=== PATIENT | female | born 1990 | race Hispanic/Latino ===

== ENCOUNTER 2017-11-19 11:39 | Emergency (ER) | payer SELFPAY ==
[2017-11-19 12:12] LABS: Absolute Lymphocytes (CBC) 1.1 K/uL (0.7-4.9); Absolute Monocytes 0.4 K/uL (0.1-1.3); Basophils % 0.2 % (0-1.3); Eosinophils % 0.1 % (0-4.4); Hematocrit 37.8 % (36.0-45.0); Lymphocytes % 9.4 % (15.3-44.8); MCH 30.3 pg (27.0-35.0); MCV 89.6 fL (80-100); MPV 8.1 fL (7.6-11.3); Monocytes % 3.9 % (3.3-12.3); RBC Red Blood Cell Count 4.22 M/uL (3.86-4.86)
[2017-11-19] MEDS ORDERED: ONDANSETRON 4 MG/2 ML VIAL ONE (12:12)
[2017-11-19] MEDS ORDERED: NA CHLORIDE 0.9% 1,000 ML ONE (12:12)
[2017-11-19 12:26] LABS: Urine Blood TRACE (NEG); Urine Glucose NEGATIVE (NEG); Urine Protein TRACE (NEG); Urine Specific Gravity >1.030 (1.005-1.030)
[2017-11-19 12:29] LABS: Urine Bacteria >50 /HPF (<20); Urine Culture Reflex Order REFLEXED; Urine RBC <5 /HPF (NONE SEEN)
[2017-11-19 12:32] LABS: ALT/SGPT 20 U/L (12-78); AST/SGOT 14 U/L (15-37); Albumin 2.9 g/dL (3.4-5.0); Alkaline Phosphatase 91 U/L (45-117); Amylase Level 131 U/L (25-115); BUN Blood Urea Nitrogen 6 mg/dL (7-18); Bicarbonate 23 mmol/L (21-32); Bilirubin Direct 0.1 mg/dL (0-0.2); Bilirubin Total 0.4 mg/dL (0.2-1.0); Glucose Level 129 mg/dL (74-106); Lipase 123 U/L (73-393); Potassium 3.7 mmol/L (3.5-5.1); Protein, Total 7.7 g/dL (6.4-8.2); Sodium Level 138 mmol/L (136-145)
--- NOTE | 2017-11-19 13:08 | RAD REPORT ---
EXAM DESCRIPTION: US - OB Limited - 11/19/2017 12:39 pm CLINICAL HISTORY: with abdominal and pelvic pain COMPARISON: None FINDINGS: Limited sonogram evaluation was performed to assess cervix, placenta, heart rate and amnio tic fluid Single live into is in breech presentation. The placenta is posterior. A subchorionic/retroplacental bleed is not seen. The placenta is not low l deena The cervix measures 4.5 centimeters. Cardiac activity 149 beats per minute. IMPRESSION: Limited OB ultrasound is unremarkable.
--- NOTE | 2017-11-19 13:08 | RAD REPORT ---
EXAM DESCRIPTION: US - Abdomen Exam Limited - 11/19/2017 12:40 pm CLINICAL HISTORY: Abdominal pain. COMPARISON: None. FINDINGS: Multiple gallstones are present. The gallbladder wall is not thickened. The biliary tree is normal caliber. IMPRESSION: Cholelithiasis without evidence of cholecystitis
--- NOTE | 2017-11-19 13:39 | EDPHYS ---
Physician Documentation [facility] Name: Paty Bautista Age: 26 yrs Sex: Female : 1990 Arrival Date: 11/19/2017 Time: 11:40 Bed 5 Private MD: None, None ED Physician Kit Thomas HPI: 11/19 13:00 This 26 yrs old Female presents to ER via Ambulatory with complaints of tw4 Abdominal Pain. 13:00 The patient presents with abdominal pain in the upper abdomen, in the right upper tw4 quadrant. Onset: The symptoms/episode began/occurred 5 day(s) ago. The symptoms do not radiate. Associated signs and symptoms: none. The symptoms are described as dull. Modifying factors: The symptoms are alleviated by nothing, the symptoms are aggravated by alcohol. Severity of pain: At its worst the pain was moderate in the emergency department the pain is unchanged. The patient has not experienced similar symptoms in the past. The patient has not recently seen a physician. 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 - Social history:: Smoking status: Patient/guardian denies using tobacco. - Ebola Screening: : Patient denies travel to an Ebola-affected area in the 21 days before illness onset. ROS: 13:00 Constitutional: Negative for fever, chills, and weight loss, Cardiovascular: Negative tw4 for chest pain, palpitations, and edema, Respiratory: Negative for shortness of breath, cough, wheezing, and pleuritic chest pain. 13:00 MS/Extremity: Negative for injury and deformity, Skin: Negative for injury, rash, and discoloration, Neuro: Negative for headache, weakness, numbness, tingling, and seizure. 13:00 Abdomen/GI: Positive for abdominal pain, nausea and vomiting, nausea, vomiting, and diarrhea, nausea, vomiting, Negative for diarrhea, constipation, abdominal cramps, abdominal distension, anorexia. 13:00 : Positive for missed period, Negative for injury or acute deformity, urinary symptoms, urinary frequency, small amounts, hematuria, pelvic pain, flank pain, burning with urination, difficulty urinating, bladder incontinence, foul smelling urine, vaginal bleeding, vaginal discharge, vaginal itching, menstrual abnormality. Exam: 13:00 Constitutional: This is a well developed, well nourished patient who is awake, alert, tw4 and in no acute distress. Head/Face: Normocephalic, atraumatic. Chest/axilla: Normal chest wall appearance and motion. Nontender with no deformity. No lesions are appreciated. Cardiovascular: Regular rate and rhythm with a normal S1 and S2. No gallops, murmurs, or rubs. Normal PMI, no JVD. No pulse deficits. Respiratory: Lungs have equal breath sounds bilaterally, clear to auscultation and percussion. No rales, rhonchi or wheezes noted. No increased work of breathing, no retractions or nasal flaring. 13:00 Skin: Warm, dry with normal turgor. Normal color with no rashes, no lesions, and no evidence of cellulitis. MS/ Extremity: Pulses equal, no cyanosis. Neurovascular intact. Full, normal range of motion. Neuro: Awake and alert, GCS 15, oriented to person, place, time, and situation. Cranial nerves II-XII grossly intact. Motor strength 5/5 in all extremities. Sensory grossly intact. Cerebellar exam normal. Normal gait. 13:00 Abdomen/GI: Inspection: abdomen appears normal, Bowel sounds: normal, Palpation: moderate abdominal tenderness, in the right upper quadrant. Vital Signs: 11:54 BP 127 / 81; Pulse 81; Resp 18; Temp 97.4(TE); Pulse Ox 99% on R/A; aj1 MDM: 11:53 Patient medically screened. tw4 13:34 Differential diagnosis: cholecystitis, Cholelithiasis. Data reviewed: vital signs, tw4 nurses notes. Data interpreted: Pulse oximetry: Interpretation: normal. Counseling: I had a detailed discussion with the patient and/or guardian regarding: the historical points, exam findings, and any diagnostic results supporting the discharge/admit diagnosis, lab results, radiology results. Medication response: Zofran relieved the patient's nausea. Special discussion: Based on the patient's Hx, exam, and Dx evaluation, there is no indication for emergent surgery or inpatient Tx. It is understood by the patient/guardian that if the Sx's persist or worsen they need to return immediately for re-evaluation. I discussed with the patient/guardian in detail that at this point there is no indication for admission to the hospital. It is understood, however, that if the symptoms persist or worsen the patient needs to return immediately for re-evaluation. 11/19 11:55 Order name: Amylase, Serum; Complete Time: 13:18 [facility] 11/19 13:18 Interpretation: Normal except: CHAO 131. 11/19 11:55 Order name: Basic Metabolic Panel; Complete Time: 13:18 [facility] 11/19 13:19 Interpretation: Normal except: GLUC 129; BUN 6; CRE 0.50. 11/19 11:55 Order name: CBC with Diff; Complete Time: 13:18 [facility] 11/19 13:19 Interpretation: Normal except: WBC 11.6; ADIA% 86.4; LYM% 9.4; NEUT A 10.0. 11/19 11:55 Order name: Creatinine for Radiology; Complete Time: 13:18 [facility] 11/19 13:19 Interpretation: Normal except: CRE 0.50. 11/19 11:55 Order name: Hepatic Function; Complete Time: 13:18 [facility] 11/19 13:19 Interpretation: Normal except: AST 14; ALB 2.9; GLOB 4.8; A/G 0.6. 11/19 11:55 Order name: Lipase; Complete Time: 13:18 [facility] 11/19 11:55 Order name: Urine Microscopic Only; Complete Time: 13:18 [facility] 11/19 13:19 Interpretation: Normal except: SQEPI 20-50; UBACT >50; UWBC 5-10. 11/19 11:55 Order name: US OB Limited; Complete Time: 13:18 [facility] 11/19 12:21 Order name: Urine Dipstick--Ancillary (enter results); Complete Time: 13:18 bd 11/19 12:21 Order name: Urine --Ancillary (enter results); Complete Time: 13:18 11/19 13:19 Interpretation: Normal except: URINE PREG POS; USPGR >1.030. 11/19 12:31 Order name: Urine Culture EDPR 11/19 12:39 Order name: Abdomen Exam Limited; Complete Time: 13:18 EDPR 11/19 11:55 Order name: Urine Test (obtain specimen); Complete Time: 12:06 tw4 11/19 11:55 Order name: IV Saline Lock; Complete Time: 12:06 4 11/19 11:55 Order name: Labs collected and sent; Complete Time: 12:06 4 11/19 11:55 Order name: Urine Dipstick-Ancillary (obtain specimen); Complete Time: 12:05 tw4 Administered Medications: 12:13 Drug: Zofran 4 mg Route: IVP; Site: right antecubital; ss 13:44 Follow up: Response: No adverse reaction 12:14 Drug: NS 0.9% 1000 ml Route: IV; Rate: 1 bolus; Site: right antecubital; ss 13:44 Follow up: IV Status: Completed infusion ss Disposition: 11/19/17 13:38 Discharged to Home. Impression: Cholelithiasis, biliary colic. - Condition is Stable. - Discharge Instructions: Abdominal Pain During , Cholelithiasis. - Prescriptions for Zofran 4 mg Oral Tablet - take 1 tablet by ORAL route every 12 hours As needed; 6 tablet. - Medication Reconciliation Form, Thank You Letter, Antibiotic Education, Prescription Opioid Use form. - Follow up: Private Physician; When: As needed; Reason: Further diagnostic work-up, Recheck today's complaints, Re-evaluation by your physician. Follow up: Afsaneh Whyte MD; When: As needed; Reason: Recheck today's complaints, Re-evaluation by your physician. Follow up: Richard Davidson MD; When: As needed; Reason: Recheck today's complaints, Re-evaluation by your physician. - Problem is new. - Symptoms have improved. Signatures: Dispatcher [employer] [facility] Franca Bain RN RN aj1 Asha Cruz RN RN ss Kit Thomas MD MD tw4 Corrections: (The following items were deleted from the chart) 12:39 11:55 Abdomen Complete+US.RAD.BRZ ordered. [facility] 13:45 13:38 11/19/2017 13:38 Discharged to Home. Impression: Cholelithiasis; biliary colic. ss Condition is Stable. Forms are Medication Reconciliation Form, Thank You Letter, Antibiotic Education, Prescription Opioid Use. Follow up: Private Physician; When: As needed; Reason: Further diagnostic work-up, Recheck today's complaints, Re-evaluation by your physician. Follow up: Afsaneh Whyte; When: As needed; Reason: Recheck today's complaints, Re-evaluation by your physician. Follow up: Richard Davidson; When: As needed; Reason: Recheck today's complaints, Re-evaluation by your physician. Problem is new. Symptoms have improved. tw4
--- NOTE | 2017-11-19 13:39 | ER ---
Nurse's Notes [facility] Name: Paty Bautista Age: 26 yrs Sex: Female : 1990 Arrival Date: 11/19/2017 Time: 11:40 Bed 5 Private MD: None, None Diagnosis: Cholelithiasis;biliary colic Presentation: 11/19 11:43 Presenting complaint:. aj1 11:52 Presenting complaint: Patient states: RUQ abdominal pain that radiates to the back aj1 since . States the has been intermittent, but got severe this morning. Reports N/V. Denies diarrhea. States she is 24 weeks . Denies lower abdominal pain or vaginal bleeding. Transition of care: patient was not received from another setting of care. Onset of symptoms was November 14, 2017. Risk Assessment: Do you want to hurt yourself or someone else? Patient reports no desire to harm self or others. Initial Sepsis Screen: Does the patient meet any 2 criteria? No. Patient's initial sepsis screen is negative. Does the patient have a suspected source of infection? Yes: Acute abdominal pain. Care prior to arrival: None. 11:52 Method Of Arrival: Ambulatory aj1 11:52 Acuity: DIANDRA 3 aj1 Triage Assessment: 11:54 General: Appears in no apparent distress. uncomfortable, Behavior is calm, cooperative, aj1 appropriate for age. Pain: Complains of pain in right upper quadrant Pain radiates to back Is intermittent. Neuro: Level of Consciousness is awake, alert, obeys commands. Cardiovascular: Patient's skin is warm and dry. Respiratory: Airway is patent Respiratory effort is even, unlabored, Respiratory pattern is regular, symmetrical. GI: Reports upper abdominal pain, nausea, vomiting. 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 - Social history:: Smoking status: Patient/guardian denies using tobacco. - Ebola Screening: : Patient denies travel to an Ebola-affected area in the 21 days before illness onset. Screenin:04 Abuse screen: Denies threats or abuse. Denies injuries from another. Nutritional ss screening: No deficits noted. Tuberculosis screening: Never had TB. Fall Risk None identified. Assessment: 12:00 General: Appears uncomfortable, Behavior is calm, cooperative, Denies fever, feeling ss ill, fatigue, chills. Pain: Complains of pain in right upper quadrant Pain currently is 8 out of 10 on a pain scale. Quality of pain is described as tender, Pain began 5 days ago Is continuous, Aggravated by increased activity. Pain: Pain radiates to right mid back. Neuro: Level of Consciousness is awake, alert, obeys commands, Oriented to person, place, time, situation. Cardiovascular: Capillary refill < 3 seconds is brisk in bilateral fingers. Respiratory: Airway is patent Trachea midline Respiratory effort is even, unlabored, Respiratory pattern is regular, symmetrical, Breath sounds are clear bilaterally. Denies cough, pain with respiration, pain with cough, pain with movement. GI: Bowel sounds present X 4 quads. Abd is soft X 4 quads. : Denies burning with urination, cramping discharge, urinary frequency, urgency, vaginal bleeding. EENT: Nares are clear Oral mucosa is moist. Derm: Skin is intact, is healthy with good turgor, Skin is dry, Skin is pink, warm \T\ dry. normal. Musculoskeletal: Circulation, motion, and sensation intact. Range of motion: intact in all extremities, Swelling absent. 12:30 Reassessment: Pt to Ultrasound now VIA wheelchair. ss 13:44 Reassessment: Patient appears in no apparent distress at this time. Patient and/or ss family updated on plan of care and expected duration. Pain level reassessed. Patient is alert, oriented x 3, equal unlabored respirations, skin warm/dry/pink. Patient states feeling better. Patient states symptoms have improved. Vital Signs: 11:54 BP 127 / 81; Pulse 81; Resp 18; Temp 97.4(TE); Pulse Ox 99% on R/A; aj1 ED Course: 11:40 Patient arrived in ED. mr 11:41 None, None is Private Physician. mr 11:41 Deedee Mosquera FNP-C is [facility]. kb 11:42 Elian Swenson MD is Attending Physician. kb 11:53 Kit Thomas MD is Attending Physician. tw4 11:54 Triage completed. aj1 11:54 Arm band placed on Patient placed in an exam room. aj1 12:04 Asha Cruz, RN is Primary Nurse. ss 12:04 Patient has correct armband on for positive identification. Bed in low position. Call ss light in reach. Side rails up X 1. Adult w/ patient. 12:04 Inserted saline lock: 20 gauge in right antecubital area, using aseptic technique. ss Blood collected. 12:40 US OB Limited In Process Unspecified. EDMS 12:40 Abdomen Exam Limited In Process Unspecified. EDMS 13:37 Afsaneh Whyte MD is Referral Physician. tw4 13:37 Richard Davidson MD is Referral Physician. tw4 13:44 No provider procedures requiring assistance completed. IV discontinued, intact, ss bleeding controlled, No redness/swelling at site. Pressure dressing applied. Administered Medications: 12:13 Drug: Zofran 4 mg Route: IVP; Site: right antecubital; ss 13:44 Follow up: Response: No adverse reaction ss 12:14 Drug: NS 0.9% 1000 ml Route: IV; Rate: 1 bolus; Site: right antecubital; ss 13:44 Follow up: IV Status: Completed infusion ss Outcome: 13:38 Discharge ordered by . tw4 13:44 Discharged to home ambulatory, with family. ss 13:44 Condition: good 13:44 Discharge instructions given to patient, Instructed on discharge instructions, follow up and referral plans. medication usage, Demonstrated understanding of instructions, follow-up care, medications, Prescriptions given X 1. 13:45 Patient left the ED. Signatures: Dispatcher [employer] EDAZ Deedee Mosquera, VACUUM CLOSING MACHINE OPERATOR-C VACUUM CLOSING MACHINE OPERATOR-Ckb Franca Bain RN RN aj1 Sobia Mak mr Asha Cruz, RN RN Kit Da Silva MD MD tw4 Corrections: (The following items were deleted from the chart) 13:14 13:09 General: Appears uncomfortable, Behavior is calm, cooperative, Denies fever, ss feeling ill, fatigue, chills, ss 13:14 13:09 Pain: Complains of pain in right upper quadrant Pain currently is 8 out of 10 on a pain scale. Quality of pain is described as tender, Pain began 5 days ago Is continuous, Aggravated by increased activity, ss 13:14 13:09 Neuro: Level of Consciousness is awake, alert, obeys commands, Oriented to person, place, time, situation, : 13: Pain: Pain radiates to right mid back ss : Derm: Skin is intact, is healthy with good turgor, Skin is dry, Skin is pink, ss warm \T\ dry. normal, :: Respiratory: Airway is patent Trachea midline Respiratory effort is even, ss unlabored, Respiratory pattern is regular, symmetrical, Breath sounds are clear bilaterally. Denies cough, pain with respiration, pain with cough, pain with movement, : Cardiovascular: Capillary refill < 3 seconds is brisk in bilateral fingers [facility] : EENT: Nares are clear Oral mucosa is moist. ss : GI: Bowel sounds present X 4 quads. Abd is soft X 4 quads [facility] : : Denies burning with urination, cramping discharge, urinary frequency, ss urgency, vaginal bleeding, : Musculoskeletal: Circulation, motion, and sensation intact. Range of motion: ss intact in all extremities, Swelling absent ss
== END 2017-11-19 13:45 | disposition home or self-care (01) ==
LOC: EDBD → ER 11:39
DX: K80.20 Calculus of gallbladder without cholecystitis without obstruction (principal); K80.50 Calculus of bile duct without cholangitis or cholecystitis without obstruction; E11.9 Type 2 diabetes mellitus without complications
CPT/HCPCS: 36415; 76705; 76815; 80048; 80076; 81003; 81015; 81025; 82150; 83690; 85025; 87086; 87088; 96361; 96374; 99284; J2405; J7030

== ENCOUNTER 2017-11-25 04:45 | Emergency (ER) | payer SELFPAY ==
[2017-11-25] MEDS ORDERED: NA CHLORIDE 0.9% 1,000 ML ONE (06:35)
[2017-11-25] MEDS ORDERED: PROMETHAZINE 25 MG/ML VIAL ONE (06:35)
[2017-11-25] MEDS ORDERED: ONDANSETRON 4 MG/2 ML VIAL ONE (06:35)
[2017-11-25] MEDS ORDERED: DICYCLOMINE HCL 10 MG CAP ONE (06:35)
[2017-11-25 06:53] LABS: Urine Blood TRACE (NEG); Urine Glucose NEGATIVE (NEG); Urine Protein NEGATIVE (NEG); Urine Specific Gravity >1.030 (1.005-1.030); Urine pH 5.5 (5.0-7.0)
[2017-11-25 06:57] LABS: Urine Bacteria 20-50 /HPF (<20); Urine Culture Reflex Order REFLEXED; Urine RBC <5 /HPF (NONE SEEN)
[2017-11-25 07:01] LABS: Absolute Lymphocytes (CBC) 2.3 K/uL (0.7-4.9); Absolute Monocytes 0.5 K/uL (0.1-1.3); Absolute Neutrophil 10.9 K/uL (1.8-8.0); Basophils % 0.3 % (0-1.3); Eosinophils % 0.2 % (0-4.4); Hematocrit 35.7 % (36.0-45.0); Lymphocytes % 16.6 % (15.3-44.8); MCH 30.6 pg (27.0-35.0); MCV 89.2 fL (80-100); MPV 8.5 fL (7.6-11.3); Monocytes % 3.6 % (3.3-12.3)
[2017-11-25 07:08] LABS: ALT/SGPT 20 U/L (12-78); AST/SGOT 14 U/L (15-37); Albumin 2.7 g/dL (3.4-5.0); Alkaline Phosphatase 86 U/L (45-117); Amylase Level 73 U/L (25-115); BUN Blood Urea Nitrogen 6 mg/dL (7-18); Bicarbonate 24 mmol/L (21-32); Bilirubin Direct 0.1 mg/dL (0-0.2); Bilirubin Total 0.3 mg/dL (0.2-1.0); Glucose Level 122 mg/dL (74-106); Lipase 135 U/L (73-393); Potassium 3.5 mmol/L (3.5-5.1); Protein, Total 7.2 g/dL (6.4-8.2); Sodium Level 138 mmol/L (136-145)
--- NOTE | 2017-11-25 08:40 | EDPHYS ---
Physician Documentation [facility] Name: Paty Bautista Age: 26 yrs Sex: Female : 1990 Arrival Date: 11/25/2017 Time: 04:45 Bed 18 Private MD: ED Physician Terrence Hawkins HPI: 11/25 06:29 This 26 yrs old Female presents to ER via Ambulatory with complaints of R side cp Pain. 06:29 The patient presents with abdominal pain in the right upper quadrant. Onset: The cp symptoms/episode began/occurred this morning. Associated signs and symptoms: Pertinent positives: vomiting, nausea, Pertinent negatives: chest pain, fever, diarrhea. 06:29 The symptoms radiate to right back. cp 06:29 The patient has been recently seen at the [facility] Emergency cp Department, last week, for similar complaints labs were performed, an ultrasound was performed. 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 - Social history:: Smoking status: Patient/guardian denies using tobacco. - Ebola Screening: : No symptoms or risks identified at this time. ROS: 06:30 Eyes: Negative for injury, pain, redness, and discharge. cp 06:30 Constitutional: Negative for body aches, chills, fever, poor PO intake. 06:30 ENT: Negative for drainage from ear(s), ear pain, sore throat, difficulty swallowing, difficulty handling secretions. 06:30 Cardiovascular: Negative for chest pain, edema, palpitations. 06:30 Respiratory: Negative for cough, shortness of breath, wheezing. 06:30 Abdomen/GI: Positive for abdominal pain, nausea, vomiting, Negative for diarrhea, constipation, anorexia, black/tarry stool, rectal bleeding. 06:30 : Negative for urinary symptoms, pelvic pain, vaginal bleeding, vaginal discharge. 06:30 Skin: Negative for cellulitis, rash. 06:30 Back: Positive for radiated pain. cp 06:30 All other systems are negative. cp Exam: 06:31 Head/Face: Normocephalic, atraumatic. cp 06:31 Constitutional: The patient appears in no acute distress, alert, awake, non-diaphoretic, non-toxic, well developed, well nourished, uncomfortable. 06:31 Eyes: Periorbital structures: appear normal, Conjunctiva: normal, no exudate, no injection, Sclera: no appreciated abnormality, Lids and lashes: appear normal, bilaterally. 06:31 ENT: External ear(s): are unremarkable, Nose: is normal, Mouth: Lips: moist, Oral mucosa: pink and intact, moist, Posterior pharynx: is normal, airway is patent, no erythema, no exudate. 06:31 Chest/axilla: Inspection: normal, Palpation: is normal, no crepitus, no tenderness. 06:31 Cardiovascular: Rate: normal, Rhythm: regular. 06:31 Respiratory: the patient does not display signs of respiratory distress, Respirations: normal, no use of accessory muscles, no retractions, no splinting, no tachypnea, labored breathing, is not present, Breath sounds: are clear throughout, no decreased breath sounds, no stridor, no wheezing. 06:31 Abdomen/GI: Inspection: gravid appearance, is noted, Bowel sounds: active, all quadrants, Palpation: soft, in all quadrants, moderate abdominal tenderness, in the right upper quadrant, voluntary guarding, is elicited in the right upper quadrant. 06:31 Skin: cellulitis, is not appreciated, no rash present. Vital Signs: 06:15 BP 123 / 94; Pulse 76; Resp 18; Temp 97.6; Pulse Ox 100% ; Weight 80 kg; Height 5 ft. ea (152.40 cm); Pain 7/10; 08:40 BP 122 / 86; Pulse 72; Resp 17 S; Pulse Ox 100% on R/A; sg 06:15 Body Mass Index 34.44 (80.00 kg, 152.40 cm) ea MDM: 06:09 Patient medically screened. cp 06:33 Differential diagnosis: cholecystitis, Cholelithiasis, gastritis, pancreatitis, Peptic cp Ulcer Disease, Perf. Duodenal Ulcer, Perf. Gastric Ulcer, Ureterolithiasis, urinary tract infection. 08:04 Data reviewed: vital signs, nurses notes, lab test result(s), radiologic studies, cp ultrasound. 11/25 06:16 Order name: Amylase, Serum; Complete Time: 07:16 cp 11/25 07:16 Interpretation: CHAO 73; Reviewed. 11/25 06:16 Order name: Basic Metabolic Panel; Complete Time: 07:16 cp 11/25 07:17 Interpretation: Normal except: GLUC 122; BUN 6; CRE 0.50. 11/25 06:16 Order name: CBC with Diff; Complete Time: 07:16 cp 11/25 07:17 Interpretation: Normal except: WBC 13.8; HCT 35.7; ADIA% 79.3; NEUT A 10.9. 11/25 06:16 Order name: Creatinine for Radiology; Complete Time: 07:16 cp 11/25 07:18 Interpretation: Reviewed. 11/25 06:16 Order name: Hepatic Function; Complete Time: 07:16 cp 11/25 07:17 Interpretation: Normal except: AST 14; ALB 2.7; GLOB 4.5; A/G 0.6. 11/25 06:16 Order name: Lipase; Complete Time: 07:16 11/25 07:18 Interpretation: Within normal limits: LIP 135; Reviewed. 11/25 06:16 Order name: Urine Microscopic Only; Complete Time: 07:16 cp 11/25 07:18 Interpretation: Normal except: UBACT 20-50. 11/25 06:16 Order name: US Abdomen Limited 11/25 06:34 Order name: Urine Dipstick--Ancillary (enter results); Complete Time: 07:16 rg2 11/25 07:18 Interpretation: Normal except: USPGR >1.030; UKET 1+; UBLD TRACE. 11/25 06:58 Order name: Urine Culture EDMS 11/25 06:16 Order name: IV Saline Lock; Complete Time: 06:28 cp 11/25 06:16 Order name: Labs collected and sent; Complete Time: 06:28 cp 11/25 06:16 Order name: Urine Dipstick-Ancillary (obtain specimen); Complete Time: 06:33 cp 11/25 06:16 Order name: FHT's; Complete Time: 07:15 cp 11/25 06:16 Order name: NPO; Complete Time: 06:33 cp 11/25 08:21 Order name: PO challenge; Complete Time: 08:22 cp Administered Medications: 06:42 Drug: Zofran 4 mg Route: IVP; Site: right antecubital; ea 06:42 Drug: Phenergan 12.5 mg Route: IVP; Site: right antecubital; ea 06:42 Drug: NS 0.9% 1000 ml Route: IV; Rate: 1 bolus; Site: right antecubital; ea 06:42 Drug: Bentyl 20 mg Route: PO; ea Disposition: 10:32 Co-signature as Attending Physician, Terrence Hawkins MD I agree with the assessment and kdr plan of care. Disposition: 11/25/17 08:40 Discharged to Home. Impression: Cholelithiasis, Biliary Colic. - Condition is Stable. - Discharge Instructions: Biliary Colic, Adult, Cholelithiasis. - Prescriptions for Bentyl 20 mg Oral Tablet - take 2 tablet by ORAL route every 6 hours As needed; 40 tablet. Macrobid 100 mg Oral Capsule - take 1 capsule by ORAL route every 12 hours for 7 days; 14 capsule. promethazine 25 mg Oral Tablet - take 1 tablet by ORAL route every 6 hours As needed; 20 tablet. Phenergan 25 mg Rectal Suppository - insert 1 suppository by RECTAL route every 6 hours As needed; 12 suppository. - Work release form, Medication Reconciliation Form, Thank You Letter, Antibiotic Education, Prescription Opioid Use form. - Follow up: Afsaneh Whyte MD; When: 1 - 2 days; Reason: Recheck today's complaints. - Problem is an ongoing problem. - Symptoms have improved. Signatures: Dispatcher [employer] EDMS Kayley Oviedo Kevin, MD MD [facility] Elian Messina PA PA cp Antunez, Elena, RN RN ea Corrections: (The following items were deleted from the chart) 07:38 06:30 Back: Negative for pain at rest, pain with movement, radiated pain, cp cp 07:38 06:30 All other systems are negative, cp cp 08:41 08:40 11/25/2017 08:40 Discharged to Home. Impression: Cholelithiasis. Condition is cp Stable. Forms are Medication Reconciliation Form, Thank You Letter, Antibiotic Education, Prescription Opioid Use. Follow up: Afsaneh Whyte; When: 1 - 2 days; Reason: Recheck today's complaints. Problem is an ongoing problem. Symptoms have improved. cp 08:49 08:41 11/25/2017 08:40 Discharged to Home. Impression: Cholelithiasis; Biliary Colic. bd Condition is Stable. Forms are Medication Reconciliation Form, Thank You Letter, Antibiotic Education, Prescription Opioid Use. Follow up: Mini Rekhi; When: 1 - 2 days; Reason: Recheck today's complaints. Problem is an ongoing problem. Symptoms have improved. cp
--- NOTE | 2017-11-25 08:40 | ER ---
Nurse's Notes [facility] Name: Paty Bautista Age: 26 yrs Sex: Female : 1990 Arrival Date: 11/25/2017 Time: 04:45 Bed 18 Private MD: Diagnosis: Cholelithiasis;Biliary Colic Presentation: 11/25 04:59 Note Pt states she is 24 weeks and is having abd pain. Per MD orders pt sent aa1 to L\T\D for evaluation. 06:21 Presenting complaint: Patient states: Patient complaining of RUQ pain that radiates to ea back, pt states it started at 1 am states it is constant. Reports he vomited one time before coming. Transition of care: patient was not received from another setting of care. Onset of symptoms was November 25, 2017. Risk Assessment: Do you want to hurt yourself or someone else? Patient reports no desire to harm self or others. Initial Sepsis Screen: Does the patient meet any 2 criteria? No. Patient's initial sepsis screen is negative. Does the patient have a suspected source of infection? No. Patient's initial sepsis screen is negative. Care prior to arrival: None. 06:21 Method Of Arrival: Ambulatory ea 06:21 Acuity: DIANDRA 3 ea Triage Assessment: 06:17 General: Appears uncomfortable, Behavior is calm, cooperative, appropriate for age. ea Pain: Complains of pain in posterior aspect of right lateral abdomen, anterior aspect of right lateral abdomen and right upper quadrant Quality of pain is described as aching, Pain began at 1 am Is continuous, Noted to be guarding. Neuro: Level of Consciousness is awake, alert, obeys commands, Oriented to person, place, time, situation. Cardiovascular: Heart tones S1 S2 present Patient's skin is warm and dry. Respiratory: Airway is patent Respiratory effort is even, unlabored, Respiratory pattern is regular, symmetrical, Breath sounds are clear bilaterally. GI: Abdomen is non-distended, Bowel sounds present X 4 quads. Reports upper abdominal pain. : No signs and/or symptoms were reported regarding the genitourinary system. Derm: Skin is pink, warm \T\ dry. 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 - Social history:: Smoking status: Patient/guardian denies using tobacco. - Ebola Screening: : No symptoms or risks identified at this time. Screenin:20 Abuse screen: Denies threats or abuse. Nutritional screening: No deficits noted. ea Tuberculosis screening: No symptoms or risk factors identified. Fall Risk None identified. 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 ea Vital Signs: 06:15 BP 123 / 94; Pulse 76; Resp 18; Temp 97.6; Pulse Ox 100% ; Weight 80 kg; Height 5 ft. ea (152.40 cm); Pain 7/10; 08:40 BP 122 / 86; Pulse 72; Resp 17 S; Pulse Ox 100% on R/A; sg 06:15 Body Mass Index 34.44 (80.00 kg, 152.40 cm) ea Vitals: 07:15 Heart Tones 136 . hb ED Course: 04:45 Patient arrived in ED. ds1 06:08 Elian Messina PA is PHCP. cp 06:08 Wilner Fonseca MD is Attending Physician. cp 06:14 Gabriela Sosa, PAVAN is Primary Nurse. ea 06:20 Arm band placed on right wrist. Patient placed in an exam room, on a stretcher, on ea pulse oximetry. 06:26 Triage completed. ea 06:26 Patient has correct armband on for positive identification. Bed in low position. Call ea light in reach. Side rails up X2. 06:32 Initial lab(s) drawn, by me, sent to lab. Inserted saline lock: 20 gauge in right cc antecubital area, using aseptic technique. Blood collected. 06:56 US Abdomen Limited In Process Unspecified. EDMS 06:56 Ultrasound completed. Patient tolerated well. aa4 07:06 Primary Nurse role handed off by Gabriela Sosa, RN sg 07:06 Sandro Adan, RN is Primary Nurse. sg 08:04 Terrence Hawkins MD is Attending Physician. cp 08:26 Diet: Patient given water. Tolerated well. sg 08:39 Afsaneh Whyte MD is Referral Physician. cp 09:40 No provider procedures requiring assistance completed. Patient did not have IV access sg during this emergency room visit. Administered Medications: 06:42 Drug: Zofran 4 mg Route: IVP; Site: right antecubital; ea 06:42 Drug: Phenergan 12.5 mg Route: IVP; Site: right antecubital; ea 06:42 Drug: NS 0.9% 1000 ml Route: IV; Rate: 1 bolus; Site: right antecubital; ea 06:42 Drug: Bentyl 20 mg Route: PO; ea Outcome: 08:40 Discharge ordered by MD. cp 08:45 Discharged to home ambulatory, with family. sg 08:45 Condition: good 08:45 Discharge instructions given to patient, Instructed on discharge instructions, follow up and referral plans. medication usage, safety practices, Demonstrated understanding of instructions, follow-up care, medications, Prescriptions given X 4. 08:49 Patient left the ED. bd Signatures: Dispatcher [employer] EDMS Kayley Oviedo Steven, RN RN sg Agata Plaza RN RN aa1 Cecilia Hess ds1 Cally Farrar aa4 Tanya Mcclain Corey, PA PA cp Sophie Martin RN PAVAN Gabriela Sosa RN RN ea
--- NOTE | 2017-11-25 09:11 | RAD REPORT ---
EXAM DESCRIPTION: US - Abdomen Exam Limited - 11/25/2017 6:57 am CLINICAL HISTORY: Abdominal pain. Right upper quadrant pain COMPARISON: November 19, 2017 FINDINGS: Multiple gallstones are present. Pericholecystic fluid is suspected. The gallbladder wall appears borderline thickened The biliary tree is normal caliber. IMPRESSION: Cholelithiasis There appears to be pericholecystic fluid which may indicate acute cholecystitis
== END 2017-11-25 08:49 | disposition home or self-care (01) ==
LOC: ER 04:45
DX: K80.20 Calculus of gallbladder without cholecystitis without obstruction (principal); K80.50 Calculus of bile duct without cholangitis or cholecystitis without obstruction; O24.912 Unspecified diabetes mellitus in pregnancy, second trimester; Z3A.24 24 weeks gestation of pregnancy
CPT/HCPCS: 36415; 76705; 80048; 80076; 81003; 81015; 82150; 83690; 85025; 87086; 87088; 96374; 96375; 99284; J2405; J2550; J7030